=== PATIENT | male | born 1960 | race Caucasian/White ===

== ENCOUNTER 2024-11-22 02:35 | Emergency (ER) | payer BC ==
[2024-11-22] MEDS: Lactated Ringers 1,000 ML IV ONE ×2 (03:00→03:45)
[2024-11-22] MEDS ORDERED: Sodium Chloride 0.9% 10 ML Syringe FLUSH PRN (03:03)
[2024-11-22 03:27] LABS: BASOPHILS PERCENT AUTO 0.1 % (0.2-1.2); EOSINOPHILS ABSOLUTE AUTO 0.1 x10^3/uL (0.0-0.5); EOSINOPHILS PERCENT AUTO 0.9 % (0.0-4.0); HEMATOCRIT 44.7 % (40.0-52.0); HEMOGLOBIN 15.7 g/dL (14.0-18.0); IMMATURE GRAN ABSOLUTE AUTO 0.02 x10^3/uL (0.00-0.07); LYMPHOCYTES ABSOLUTE AUTO 0.2 x10^3/uL (1.0-4.8); LYMPHOCYTES PERCENT AUTO 2.4 % (25.0-50.0); MEAN CORPUSCULAR HEMOGLOBIN 31.7 pg (26.0-32.0); MEAN CORPUSCULAR HGB CONC 35.1 g/dL (32.0-36.0); MEAN CORPUSCULAR VOLUME 90.1 fL (78.0-93.0); MONOCYTES ABSOLUTE AUTO 0.3 x10^3/uL (0.0-0.8); MONOCYTES PERCENT AUTO 3.1 % (2.0-11.0); NEUTROPHILS ABSOLUTE AUTO 8.5 x10^3/uL (1.8-7.7); NEUTROPHILS PERCENT AUTO 93.3 % (50.0-80.0); PLATELET COUNT,PLT 202 x10^3/uL (130-400); RED BLOOD CELL COUNT 4.96 x10^6/uL (4.5-6.0); WHITE BLOOD CELL COUNT,WBC 9.1 x10^3/uL (4.0-10.0)
[2024-11-22 03:36] LABS: ALANINE AMINOTRANSFERASE,ALT 32 U/L (16-63); ALBUMIN 3.9 g/dL (3.4-5.0); ALKALINE PHOSPHATASE 66 U/L (46-116); ASPARTATE AMNIOTRANSFERASE,AST 21 U/L (15-37); BILIRUBIN TOTAL 1.1 mg/dL (0.2-1.0); BLOOD UREA NITROGEN,BUN 22 mg/dL (7-18); CALCIUM 9.2 mg/dL (8.5-10.1); CARBON DIOXIDE,CO2 27 mmol/L (21-32); CHLORIDE,CL 105 mmol/L (98-107); CREATININE 1.2 mg/dL (0.70-1.30); EST CRCL DRUG DOSING (CG) 58.58 mL/min; GLUCOSE RANDOM 163 mg/dL (70-99); LIPASE 31 U/L (19-71); MAGNESIUM 1.7 mg/dL (1.8-2.4); POTASSIUM,K 4.7 mmol/L (3.5-5.1); PROTEIN TOTAL,TP 6.9 g/dL (6.4-8.2); SODIUM,NA 143 mmol/L (136-145)
[2024-11-22 03:37] LABS: ANION GAP 15.7 mmol/L (5-15); ESTIMATED GFR 67 mL/min (>=60)
[2024-11-22 03:38] LABS: C-REACTIVE PROTEIN < 0.50 mg/dL (<=0.50)
[2024-11-22 03:41] LABS: LACTIC ACID 2.2 mmol/L (0.4-2.0)
[2024-11-22] MEDS: Take Home: Ondansetron 4 MG Tab.DIS, 5 Tab Pack PO ONE (04:34)
[2024-11-22 04:53] VITALS: BP 117/74; PULSE 99
== END 2024-11-22 05:00 | disposition home or self-care (01) ==
LOC: VM.ED 02:35
DX: K52.9 Noninfective gastroenteritis and colitis, unspecified (principal)
CPT/HCPCS: 36415; 80053; 83605; 83690; 83735; 85025; 86140; 96360; 99284-25; J7120; Q0162

== ENCOUNTER 2024-11-22 05:36 | Inpatient (IN) | payer OTHER, BC ==
[2024-11-22] MEDS ORDERED: Sodium Chloride 0.9% 10 ML Syringe FLUSH PRN (05:49)
[2024-11-22] MEDS: Ondansetron 4 MG/2 ML SDV IVPUSH ONE (06:12)
[2024-11-22] MEDS: Lactated Ringers 1,000 ML IV ONE ×2 (06:45→09:14)
[2024-11-22 06:49] LABS: LACTIC ACID 2.6 mmol/L (0.4-2.0)
[2024-11-22] MEDS: Tranexamic Acid 1,000 MG/10 ML Vial IVPUSH ONE (07:44)
[2024-11-22] MEDS ORDERED: Prochlorperazine 5 MG Tab PO PRN (08:00)
[2024-11-22] MEDS: Magnesium Sulfate/Water Premix 2 GM in Premix Bag 1 BAG IV ONE (09:13)
[2024-11-22] MEDS: Acetaminophen 325 MG Tab PO PRN (11:17)
[2024-11-22] MEDS: Lactated Ringers 1,000 ML IV SCH (11:18)
[2024-11-22] MEDS: Ondansetron 4 MG/2 ML SDV IVPUSH PRN (13:24)
[2024-11-22] MEDS ORDERED: Flumazenil 0.1 MG/ML 5 ML MDV IVPUSH PRN (13:35)
[2024-11-22] MEDS: LORazepam 2 MG/ML SDV IVPUSH ONE (13:35)
[2024-11-22] MEDS: levETIRAcetam 500 MG/5 ML SDV IVPUSH ONE (13:40)
[2024-11-22] MEDS: LORazepam 2 MG/ML SDV ONE (14:00)
[2024-11-22 14:05] LABS: BASOPHILS PERCENT AUTO 0.1 % (0.2-1.2); EOSINOPHILS PERCENT AUTO 0.1 % (0.0-4.0); HEMATOCRIT 39.2 % (40.0-52.0); HEMOGLOBIN 13.8 g/dL (14.0-18.0); IMMATURE GRAN ABSOLUTE AUTO 0.02 x10^3/uL (0.00-0.07); LYMPHOCYTES ABSOLUTE AUTO 0.2 x10^3/uL (1.0-4.8); MEAN CORPUSCULAR HEMOGLOBIN 32.1 pg (26.0-32.0); MEAN CORPUSCULAR HGB CONC 35.2 g/dL (32.0-36.0); MEAN CORPUSCULAR VOLUME 91.2 fL (78.0-93.0); MONOCYTES ABSOLUTE AUTO 0.3 x10^3/uL (0.0-0.8); MONOCYTES PERCENT AUTO 4.1 % (2.0-11.0); NEUTROPHILS ABSOLUTE AUTO 6.3 x10^3/uL (1.8-7.7); NEUTROPHILS PERCENT AUTO 92.6 % (50.0-80.0); PLATELET COUNT,PLT 184 x10^3/uL (130-400); WHITE BLOOD CELL COUNT,WBC 6.8 x10^3/uL (4.0-10.0)
[2024-11-22 14:10] LABS: LYMPHOCYTES PERCENT AUTO 2.8 % (25.0-50.0)
[2024-11-22 14:24] LABS: A/G RATIO 1.1; ALBUMIN 3.3 g/dL (3.4-5.0); BILIRUBIN TOTAL 1.1 mg/dL (0.2-1.0); CALCIUM 8.6 mg/dL (8.5-10.1); CREATININE 1.2 mg/dL (0.70-1.30); EST CRCL DRUG DOSING (CG) 58.58 mL/min; POTASSIUM,K 4.3 mmol/L (3.5-5.1); PROTEIN TOTAL,TP 6.3 g/dL (6.4-8.2)
[2024-11-22 14:25] LABS: ANION GAP 15.3 mmol/L (5-15)
== END 2024-11-22 15:08 | disposition home or self-care (01) | DRG 391 ==
LOC: VM.ED 05:36 → VM.MS 07:27
PROVIDERS: ADMIT Physician Assistant; ATTEND Physician Assistant
DX: K52.9 Noninfective gastroenteritis and colitis, unspecified (principal); S06.5XAA Traumatic subdural hemorrhage with loss of consciousness status unknown, initial encounter; E87.20 Acidosis, unspecified; S09.90XA Unspecified injury of head, initial encounter; E83.42 Hypomagnesemia; E86.0 Dehydration; W18.31XA Fall on same level due to stepping on an object, initial encounter; G40.409 Other generalized epilepsy and epileptic syndromes, not intractable, without status epilepticus; R63.0 Anorexia; Z68.25 Body mass index [BMI] 25.0-25.9, adult; Y93.89 Activity, other specified; Y92.89 Other specified places as the place of occurrence of the external cause
CPT/HCPCS: 36415; 70450; 71045; 80053; 83605; 84484; 85025; 87040; 87428-QW; 93005; 93010; 96361; 96374; 99236; 99285-25; A9270-GY; J1953; J2060; J2405; J3475; J7120